=== PATIENT | female | born 1965 | race Caucasian/White ===

== ENCOUNTER 2017-01-18 18:24 | Observation (INO) | payer OTHER ==
[2017-01-18] MEDS ORDERED: NS 0.9% 1000 ML* 1,000 ML IV ONE ×2 (19:39→20:59)
[2017-01-18] MEDS ORDERED: Divalproex ER TAB(*) 500 MG PO ONE (19:41)
[2017-01-18] MEDS ORDERED: Ondansetron INJ* 2 MG/ML VIAL ONE (20:02)
[2017-01-18] MEDS ORDERED: Ondansetron INJ* 2 MG/ML VIAL IV ONE (20:23)
[2017-01-18 20:37] LABS: Hematocrit 41 % (35-47); Hemoglobin 14.3 g/dl (12.0-16.0); Mean Corpuscular HGB Conc 35 g/dl (31-36); Mean Corpuscular Hemoglobin 32 pg (27-31); Mean Corpuscular Volume 94 fL (80-97); Mean Platelet Volume 8 um3 (7.4-10.4); Red Blood Count 4.42 10^6/ul (4.0-5.4); Red Cell Distribution Width 12 % (10.5-15); White Blood Count 10.8 10^3/ul (3.5-10.8)
[2017-01-18 20:53] LABS: Calcium 8.9 mg/dL (8.6-10.3); EGFR Non-African American 103.4 (>60); Globulin 2.8 g/dL (2-4); Magnesium 2.1 mg/dL (1.9-2.7); Potassium 3.4 mmol/L (3.5-5.0); Total Bilirubin 0.8 mg/dL (0.2-1.0); Total Protein 6.8 g/dL (6.4-8.9)
[2017-01-18 20:58] LABS: Troponin I 0.08 ng/mL (<0.04)
--- NOTE | 2017-01-18 20:58 | RAD ---
HISTORY: Seizure, headache COMPARISONS: None TECHNIQUE: Multiple contiguous axial CT scans were obtained of the head without intravenous contrast. FINDINGS: HEMORRHAGE/INFARCT: There is no hemorrhage or acute infarct. MASSES/SHIFT: There is no mass or shift. EXTRA-AXIAL SPACES: There are no extra-axial fluid collections. SULCI AND VENTRICLES: The sulci and ventricles are normal in size and position for the patient's stated age. CEREBRUM: There are no focal parenchymal abnormalities. BRAINSTEM: There are no focal parenchymal abnormalities. CEREBELLUM: There are no focal parenchymal abnormalities. VESSELS: The vessels are grossly normal. PARANASAL SINUSES: The paranasal sinuses are clear. ORBITS: The orbits are unremarkable. BONES AND SOFT TISSUE: No bone or soft tissue abnormalities are noted. OTHER: None IMPRESSION: NO ACUTE INTRACRANIAL PATHOLOGY.
[2017-01-18 23:42] LABS: BUN/Creatinine Ratio 19.6 (8-20); Calcium 8.1 mg/dL (8.6-10.3); EGFR African American 163.5 (>60); EGFR Non-African American 127.1 (>60); Potassium 3.6 mmol/L (3.5-5.0)
[2017-01-19] MEDS ORDERED: Aspirin TAB* 325 MG PO ONE (00:15)
--- NOTE | 2017-01-19 00:28 | ED ---
keyanna Linder Timothy, scribed for Forrest Castellanos on 01/18/17 at 1935 . Neurological HPI - HPI Summary HPI Summary: Yaneth Garrido is a 51 yo female presenting to [facility] with witness seizure at 1827 today, lasting one minute. Pt bit her tongue. It took 20 minutes for her to return to normal. Pt has a Hx of seizures but has not had one in over a year. She currently has 5/10 REYES, which she states is typical S/P seizure. Her MHx includes seizure. Her neurologist is in [place]. - History of Current Complaint Chief Complaint: EDSeizure Stated Complaint: SEIZURE Time Seen by Provider: 01/18/17 19:29 Hx Obtained From: Patient Onset/Duration: Sudden Onset Pain Intensity: 0 - Allergy/Home Medications Allergies/Adverse Reactions: Allergies Allergy/AdvReac Type Severity Reaction Status Date / Time No Known Allergies Allergy Verified 01/18/17 19:34 PMH/Surg Hx/FS Hx/Imm Hx Neurological History: Reports: Hx Seizures - Surgical History Surgery Procedure, Year, and Place: hysterectomy Infectious Disease History: Denies: Traveled Outside the in Last 30 Days - Family History Known Family History: Positive: Cardiac Disease, Diabetes Negative: Hypertension - Social History Alcohol Use: Occasionally Hx Substance Use: No Substance Use Type: Reports: None Hx Tobacco Use: No Smoking Status (MU): Never Smoked Tobacco Review of Systems Constitutional: Negative Eyes: Negative ENT: Negative Cardiovascular: Negative Respiratory: Negative Gastrointestinal: Negative Genitourinary: Negative Musculoskeletal: Negative Skin: Negative Neurological: Other - seizure Positive: Headache Psychological: Normal All Other Systems Reviewed And Are Negative: Yes Physical Exam Triage Information Reviewed: Yes Vital Signs On Initial Exam: Initial Vitals Temp Pulse Resp BP Pulse Ox 97.2 F 84 18 120/89 98 01/18/17 18:25 01/18/17 18:25 01/18/17 18:25 01/18/17 18:25 01/18/17 18:25 Vital Signs Reviewed: Yes Appearance: Positive: Well-Appearing, No Pain Distress, Well-Nourished Skin: Positive: Warm, Skin Color Reflects Adequate Perfusion, Dry Head/Face: Positive: Normal Head/Face Inspection Eyes: Positive: EOMI, NICOLE ENT: Positive: Normal ENT inspection, Hearing grossly normal. Negative: Muffled /hoarse voice Neck: Positive: Supple, Nontender Respiratory/Lung Sounds: Positive: Clear to Auscultation, Breath Sounds Present Cardiovascular: Positive: RRR, Pulses are Symmetrical in both Upper and Lower Extremities Abdomen Description: Positive: Nontender, Soft Bowel Sounds: Positive: Present Musculoskeletal: Positive: Normal, Strength/ROM Intact Neurological: Positive: Normal, Sensory/Motor Intact, Alert, Oriented to Person Place, Time Psychiatric: Positive: Normal, Affect/Mood Appropriate Diagnostics - Vital Signs Vital Signs Temp Pulse Resp BP Pulse Ox 01/18/17 18:25 97.2 F 84 18 120/89 98 - Laboratory Result Diagrams: 01/18/17 20:30 01/18/17 23:06 Lab Statement: Any lab studies that have been ordered have been reviewed, and results considered in the medical decision making process. - CT Brain CT Interpretation: No Acute Changes - IMPRESSION: NO ACUTE INTRACRANIAL PATHOLOGY. CT Interpretation Completed By: Radiologist - EKG 2020 Cardiac Rate: NL - 74 BPM EKG Interpretation: NSR @ 74 BPM, QS depression in inferior leads. Re-Evaluation - Re-Evaluation First Eval Re-Evaluation Time: 21:05 Change: Unchanged Comment: Reviewed Pt lab and imaging studies, she is agreeable to current course of Tx. Second Eval Re-Evaluation Time: 00:11 Change: Unchanged Comment: Discussed new lab results with Pt. She is agreeable to current course of Tx. Course/Dx - Course Assessment/Plan: Yaneth Garrido is a 51 yo female presenting to [facility] S/P seizure at 1827 today lasting one minute in which she bit her tongue, with a postictal period of 20 minutes, curently c/o 5/10 REYES which she states is normal for her after seizure. Pt medication list reviewed this visit. In the ED course she recieved IV fluids, Depakote, and zofran for nausea control. Her EKG suggests NSR with QS depression in inferior leads. Her Brain CT suggests no acute intracranial pathology. After clinical examination and review of her lab and imaging studies, as well as discussion with Dr. Prado, she will be admitted to [facility] with seizure, elevated troponin, and r/o ACS. - Differential Dx Differential Diagnoses Neuro: Positive: Other - seizure - Diagnoses Provider Diagnoses: Seizure, Elevated troponin, rule out acute coronary syndrome - Physician Notifications Discussed Care Of Patient With: Jagjit Prado - Discussed Pt condition, agrees to admit Pt Time Discussed With Above Provider: 00:19 Instructed by Provider To: Admit As Inpatient Discharge - Discharge Plan Condition: Stable Disposition: ADMITTED TO [facility] Discharge Disposition Comment: admission to [facility] The documentation as recorded by the keyanna rodriguez Timothy accurately reflects the service I personally performed and the decisions made by me, Forrest Castellanos.
[2017-01-19 00:40] LABS: Troponin I 0.18 ng/mL (<0.04)
[2017-01-19 01:31] LABS: Prolactin 24.9 ng/mL (1.0-25.0)
--- NOTE | 2017-01-19 01:40 | HP ---
H&P (Free Text) History and Physical: Neurology: Dr Amos of [facility] Date/Time of Evaluation: 01/19/2017 0045 CC: seizure HPI: Mrs Garrido is a 51YO female HX epilepsy who was riding in a car en route to [place] when she experience her typical prodrome for seizure of an aura she describes as constanza vu for which she took 0.5mg lorazepam, but continued to progress developing tunnel vision, and the next thing she knew she was waking up in [facility]. She denies other symptomotology, specifically focal WNT, change in speech/swallow, chest pain, SOB, N/V, palpitations, sweats, or other issues. Per ED witnesses related her eyes rolled back and she developed generalized convulsions. Upon awakening, she felt fatigued and foggy. PMedHx epilepsy intubation for severe sepsis 2nd C diff following hysterectomy Ambulatory Orders Divalproex DR TAB(*) 500 mg PO QAM 01/19/[address] TAB(*) 750 mg PO QPM 01/19/17 Lorazepam 0.5 mg PO BID PRN 01/19/17 Allergies No Known Allergies Allergy (Verified 01/18/17 19:34) PSurgHx hysterectomy SocHx: quit smoking 1988, mild alcohol (none today), daily marijuana but no other recreational drugs; lives with her , has 3 children the youngest of which (15YO son) has been paternally estranged for 2 years which is very stressful for her, additionally she relates increased stress due to intricacies of building a home; 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; full code status FamHx: Mother: CVA, DM, HTN; Father: aortic aneurysm ROS: as above, otherwise reviewed and all were negative Constitutional: NAD, normally developed, well-nourished white female vitals: Vital Signs Temp 36.7 C 01/19/17 03:40 Pulse 55 01/19/17 03:40 Resp 13 01/19/17 04:30 BP 94/53 01/19/17 03:40 Pulse Ox 97 01/19/17 03:40 Intake & Output 01/18/17 01/18/17 01/19/17 11:59 23:59 11:59 Intake Total 1000 69 Output Total 100 Balance 1000 -31 Weight 58.967 kg 60.192 kg Intake: IV Fluids 1000 69 NS (0.9%) 69 Oral 0 Output: Urine 100 Other: # Bowel Movements 0 HEENM: atraumatic; sclera/conjunctiva: non-icteric/clear; hearing: clinically intact; oropharynx: clear, mucosa moist Neck: soft tissue: non-tender; thyroid: normal Pulmonary: clear to auscultation bilaterally, good aeration, no accessory muscle use CV: RR/RR, normal S1S2, no carotid bruit, no jugular venous distention, 2+ B DP/ PT, no edema Abdominal: soft, non-distended, non-tender, no rebound/guarding/rigidity, normoactive bowel sounds, no hepatosplenomegaly or masses, no costovertebral angle tenderness Musculoskeletal: general: grossly intact; gait: stable Integumental: normal appearance and texture of exposed skin Psychiatric orientation: AA&O to PPS affect: calm mood: cooperative eye contact: good content: reliable memory: absent for most of event responses: timely, appropriate insight: good Testing: Lab Results 01/18/17 01/18/17 01/18/17 Range/Units 20:30 20:30 20:30 WBC 10.8 (3.5-10.8) 10^3/ul RBC 4.42 (4.0-5.4) 10^6/ul Hgb 14.3 (12.0-16.0) g/dl Hct 41 (35-47) % MCV 94 (80-97) fL MCH 32 H (27-31) pg MCHC 35 (31-36) g/dl RDW 12 (10.5-15) % Plt Count 171 (150-450) 10^3/ul MPV 8 (7.4-10.4) um3 Neut % (Auto) 79.9 (38-83) % Lymph % (Auto) 10.9 L (25-47) % [place] % (Auto) 8.8 (1-9) % Eos % (Auto) 0.1 (0-6) % Baso % (Auto) 0.3 (0-2) % Absolute Neuts (auto) 8.6 H (1.5-7.7) 10^3/ul Absolute Lymphs (auto) 1.2 (1.0-4.8) 10^3/ul Absolute Monos (auto) 1.0 H (0-0.8) 10^3/ul Absolute Eos (auto) 0 (0-0.6) 10^3/ul Absolute Basos (auto) 0 (0-0.2) 10^3/ul Absolute Nucleated RBC 0 10^3/ul Nucleated RBC % 0 INR (Anticoag Therapy) 1.00 (0.89-1.11) APTT 27.9 (26.0-36.3) seconds D-Dimer, Quantitative < 200 (Less Than 230) ng/mL Sodium 127 L (133-145) mmol/L Potassium 3.4 L (3.5-5.0) mmol/L Chloride 92 L (101-111) mmol/L Carbon Dioxide 25 (22-32) mmol/L Anion Gap 10 (2-11) mmol/L BUN 11 (6-24) mg/dL Creatinine 0.61 (0.51-0.95) mg/dL Est GFR ( Amer) 133.0 (>60) Est GFR (Non-Af Amer) 103.4 (>60) BUN/Creatinine Ratio 18.0 (8-20) Glucose 114 H (70-100) mg/dL Calcium 8.9 (8.6-10.3) mg/dL Magnesium 2.1 (1.9-2.7) mg/dL Total Bilirubin 0.80 (0.2-1.0) mg/dL AST 16 (13-39) U/L ALT 8 (7-52) U/L Alkaline Phosphatase 34 (34-104) U/L Total Creatine Kinase 85 (10-223) U/L CK-MB (CK-2) 1.8 (0.6-6.3) ng/mL Troponin I 0.08 H* (<0.04) ng/mL Total Protein 6.8 (6.4-8.9) g/dL Albumin 4.0 (3.2-5.2) g/dL Globulin 2.8 (2-4) g/dL Albumin/Globulin Ratio 1.4 (1-3) Prolactin 24.9 (1.0-25.0) ng/mL Urine Color Urine Appearance Urine pH (5-9) Ur Specific [place] (1.010-1.030) Urine Protein (Negative) Urine Ketones (Negative) Urine Blood (Negative) Urine Nitrate (Negative) Urine Bilirubin (Negative) Urine Urobilinogen (Negative) Ur Leukocyte Esterase (Negative) Urine Glucose (Negative) Valproic Acid 71.0 (50-100) mcg/mL 01/18/17 01/19/17 01/19/17 Range/Units 23:06 03:15 03:21 WBC (3.5-10.8) 10^3/ul RBC (4.0-5.4) 10^6/ul Hgb (12.0-16.0) g/dl Hct (35-47) % MCV (80-97) fL MCH (27-31) pg MCHC (31-36) g/dl RDW (10.5-15) % Plt Count (150-450) 10^3/ul MPV (7.4-10.4) um3 Neut % (Auto) (38-83) % Lymph % (Auto) (25-47) % [place] % (Auto) (1-9) % Eos % (Auto) (0-6) % Baso % (Auto) (0-2) % Absolute Neuts (auto) (1.5-7.7) 10^3/ul Absolute Lymphs (auto) (1.0-4.8) 10^3/ul Absolute Monos (auto) (0-0.8) 10^3/ul Absolute Eos (auto) (0-0.6) 10^3/ul Absolute Basos (auto) (0-0.2) 10^3/ul Absolute Nucleated RBC 10^3/ul Nucleated RBC % INR (Anticoag Therapy) (0.89-1.11) APTT (26.0-36.3) seconds D-Dimer, Quantitative (Less Than 230) ng/mL Sodium 129 L (133-145) mmol/L Potassium 3.6 (3.5-5.0) mmol/L Chloride 98 L (101-111) mmol/L Carbon Dioxide 23 (22-32) mmol/L Anion Gap 8 (2-11) mmol/L BUN 10 (6-24) mg/dL Creatinine 0.51 (0.51-0.95) mg/dL Est GFR ( Amer) 163.5 (>60) Est GFR (Non-Af Amer) 127.1 (>60) BUN/Creatinine Ratio 19.6 (8-20) Glucose 108 H (70-100) mg/dL Calcium 8.1 L (8.6-10.3) mg/dL Magnesium (1.9-2.7) mg/dL Total Bilirubin (0.2-1.0) mg/dL AST (13-39) U/L ALT (7-52) U/L Alkaline Phosphatase (34-104) U/L Total Creatine Kinase 76 (10-223) U/L CK-MB (CK-2) 2.3 (0.6-6.3) ng/mL Troponin I 0.18 H* 0.29 H* (<0.04) ng/mL Total Protein (6.4-8.9) g/dL Albumin (3.2-5.2) g/dL Globulin (2-4) g/dL Albumin/Globulin Ratio (1-3) Prolactin (1.0-25.0) ng/mL Urine Color Yellow Urine Appearance Clear Urine pH 6.0 (5-9) Ur Specific [place] 1.008 L (1.010-1.030) Urine Protein Negative (Negative) Urine Ketones 1+ H (Negative) Urine Blood Negative (Negative) Urine Nitrate Negative (Negative) Urine Bilirubin Negative (Negative) Urine Urobilinogen Negative (Negative) Ur Leukocyte Esterase Negative (Negative) Urine Glucose Negative (Negative) Valproic Acid (50-100) mcg/mL 01/19/17 Range/Units 05:50 WBC (3.5-10.8) 10^3/ul RBC (4.0-5.4) 10^6/ul Hgb (12.0-16.0) g/dl Hct (35-47) % MCV (80-97) fL MCH (27-31) pg MCHC (31-36) g/dl RDW (10.5-15) % Plt Count (150-450) 10^3/ul MPV (7.4-10.4) um3 Neut % (Auto) (38-83) % Lymph % (Auto) (25-47) % [place] % (Auto) (1-9) % Eos % (Auto) (0-6) % Baso % (Auto) (0-2) % Absolute Neuts (auto) (1.5-7.7) 10^3/ul Absolute Lymphs (auto) (1.0-4.8) 10^3/ul Absolute Monos (auto) (0-0.8) 10^3/ul Absolute Eos (auto) (0-0.6) 10^3/ul Absolute Basos (auto) (0-0.2) 10^3/ul Absolute Nucleated RBC 10^3/ul Nucleated RBC % INR (Anticoag Therapy) (0.89-1.11) APTT (26.0-36.3) seconds D-Dimer, Quantitative (Less Than 230) ng/mL Sodium 129 L (133-145) mmol/L Potassium 4.0 (3.5-5.0) mmol/L Chloride 97 L (101-111) mmol/L Carbon Dioxide 26 (22-32) mmol/L Anion Gap 6 (2-11) mmol/L BUN 9 (6-24) mg/dL Creatinine 0.54 (0.51-0.95) mg/dL Est GFR ( Amer) 153.1 (>60) Est GFR (Non-Af Amer) 119.0 (>60) BUN/Creatinine Ratio 16.7 (8-20) Glucose 96 (70-100) mg/dL Calcium 8.2 L (8.6-10.3) mg/dL Magnesium (1.9-2.7) mg/dL Total Bilirubin (0.2-1.0) mg/dL AST (13-39) U/L ALT (7-52) U/L Alkaline Phosphatase (34-104) U/L Total Creatine Kinase (10-223) U/L CK-MB (CK-2) (0.6-6.3) ng/mL Troponin I 0.24 H* (<0.04) ng/mL Total Protein (6.4-8.9) g/dL Albumin (3.2-5.2) g/dL Globulin (2-4) g/dL Albumin/Globulin Ratio (1-3) Prolactin (1.0-25.0) ng/mL Urine Color Urine Appearance Urine pH (5-9) Ur Specific [place] (1.010-1.030) Urine Protein (Negative) Urine Ketones (Negative) Urine Blood (Negative) Urine Nitrate (Negative) Urine Bilirubin (Negative) Urine Urobilinogen (Negative) Ur Leukocyte Esterase (Negative) Urine Glucose (Negative) Valproic Acid (50-100) mcg/mL ECG, personally reviewed: NSR rate 70, diffuse ST-T flattening with T-wave inversion in V4/5 CXR, personally reviewed: IMPRESSION: NO ACUTE INTRACRANIAL PATHOLOGY. Impression: 51F HX epilepsy presents after a typical seizure with finding of elevating troponin without cardiac symptomotology DIAGNOSIS & PLAN Primary elevated troponin : concerning for demand ischemia during seizure : active individual without exercise induced angina : telemetry, trend : aspirin : exercise stress test in AM : consider cardiology consult pending above results, if indicated : supplemental oxygen : supportive care Secondary epilepsy with breakthrough seizure : continue divalproex, level therapeutic : seizure precautions Admission Rational: CDU observation for elevated troponin DVTp: DARIEN Code Status: full HCP:
[2017-01-19] MEDS ORDERED: Albuterol 2.5 MG/3 ML NEB.SOL* (0.083%) INH PRN (01:43)
[2017-01-19] MEDS ORDERED: CMCS: Melatonin (NF) 3 MG TAB PO PRN (01:43)
[2017-01-19] MEDS ORDERED: Acetaminophen TAB* 325 MG PO PRN (01:43)
[2017-01-19] MEDS ORDERED: Ondansetron INJ* 2 MG/ML VIAL IV PRN (01:43)
[2017-01-19] MEDS ORDERED: LORazepam TAB(*) 0.5 MG PO PRN (01:44)
[2017-01-19] MEDS ORDERED: NS 0.9% 1000 ML* 1,000 ML IV SCH ×2 (01:45→07:08)
[2017-01-19 03:44] LABS: Urine Bilirubin Negative (Negative); Urine Glucose Negative (Negative); Urine Nitrite Negative (Negative)
[2017-01-19] MEDS ORDERED: Omeprazole CAP* 20 MG PO SCH (06:00)
[2017-01-19 06:21] LABS: BUN/Creatinine Ratio 16.7 (8-20); Calcium 8.2 mg/dL (8.6-10.3); EGFR African American 153.1 (>60)
[2017-01-19 06:25] LABS: Troponin I 0.24 ng/mL (<0.04)
[2017-01-19] MEDS ORDERED: Aspirin EC Low Dose* 81 MG TAB.EC PO SCH (09:00)
[2017-01-19] MEDS ORDERED: Divalproex DR TAB(*) 500 MG PO SCH (09:00)
[2017-01-19 11:32] VITALS: BP 96/58
[2017-01-19] MEDS ORDERED: ALPRAZolam TAB* 0.25 MG PO PRN (12:42)
[2017-01-19] MEDS ORDERED: Nicotine Lozenge* 4 MG LOZENGE MT PRN (12:42)
[2017-01-19] MEDS ORDERED: Divalproex DR TAB(*) 250 MG PO SCH (18:00)
--- NOTE | 2017-01-20 13:16 | DS ---
CC: Dr. Charlie Kwok * DISCHARGE SUMMARY: DATE OF ADMISSION: 01/19/17 DATE OF DISCHARGE: 01/19/17 PRIMARY CARE PROVIDER: None. NEUROLOGIST: Dr. Charlie Kwok from [facility], Fax #. DISCHARGE DIAGNOSES: 1. Generalized tonic-clonic seizure in a patient with history of seizure disorder. 2. Elevated troponin due to above. SECONDARY DIAGNOSES: 1. Hyponatremia, suspected mild dehydration. 2. History of seizure disorder. MEDICATIONS ON DISCHARGE: Unchanged from admission and include: 1. Depakote DR 500 mg q.a.m., 750 mg q.p.m. 2. Lorazepam 0.5 mg b.i.d. p.r.n. LABORATORY DATA AND STUDIES PERFORMED DURING THE HOSPITAL STAY: Includes: The patient's troponin peaked at 0.29. On 01/19/17, sodium of 129, potassium of 4.0 , chloride 97, carbon dioxide 26, BUN 9, creatinine 0.54. Serum valproic acid obtained on 01/18/[address] obtained on admission. Impression: "No acute intracranial pathology. " The patient's treadmill cardiac stress test obtained on 01/19/17. Impression: "Normal submaximal cardiac stress test." HOSPITALIZATION COURSE: Yaneth Garrido is a 51-year-old female with a history of seizure disorder who presented to the hospital after generalized tonic-clonic seizure. The patient stated that last time she had generalized tonic-clonic seizure was approximately a year ago. She has a history of partial seizures that happened frequently. Due to that she has not driven for the past several years. She is also on leave from work due to that. While the patient was observed in the emergency department, she was noted to have a troponin of 0.2. Due to that, medicine service was asked to see the patient for observation. The patient was observed in patient monitor bed with no evidence of arrhythmias noted. Subsequently, she had a treadmill cardiac stress test performed under the supervision of Dr. Luu which was submaximal due to some technical difficulties, but otherwise normal. The patient never developed chest pain or shortness of breath and her troponin was most likely elevated due to the stress and demand ischemia related to seizure. The patient had hyponatremia and hypokalemia with a sodium of 127 and potassium of 3.4. At admission, it was replaced with oral potassium. The patient also received intravenous hydration and her sodium renee to 129 by the time of discharge. The patient is recommended to have a basic metabolic panel level drawn in approximately a week for followup. The patient also is recommended to drink instead of water drinks with electrolytes in them. At discharge, the patient is recommended to follow up with her primary neurologist within the next couple of weeks. PHYSICAL EXAMINATION: At the time of discharge, blood pressure 96/58, heart rate of 59 and regular, respiratory rate 18, oxygen saturation 98% on room air, and temperature 98.7. General Appearance: This is a very pleasant 51-year-old female who is in no acute distress. Alert, awake, and oriented x3. HEENT: Head atraumatic and normocephalic. Eyes: Pupils are equal, round, and reactive to light and accommodation. Oropharynx clear. Mucosa moist. Neck: Supple. No JVD, no bruit bilaterally. Cardiovascular: Regular, rate, and rhythm. No murmur. Respiratory: Clear to auscultation bilaterally. Abdomen: Soft and nontender. Bowel sounds present in all 4 quadrants. Extremities: There is no edema, pulses +2 bilaterally, no clubbing or cyanosis. Please note this is a short summary of the patient's hospitalization. Please refer to further medical records for details. [id number] #: [id number] MTDD
== END 2017-01-19 14:00 | disposition home or self-care (01) ==
LOC: ED 18:24 → MEDTELE 01-19 00:47
PROVIDERS: ADMIT Hospitalist; ATTEND Internal Medicine
DX: G40.89 Other seizures (principal); R74.8 Abnormal levels of other serum enzymes; E87.1 Hypo-osmolality and hyponatremia; G40.409 Other generalized epilepsy and epileptic syndromes, not intractable, without status epilepticus; E87.6 Hypokalemia
CPT/HCPCS: 36415; 70450; 80048; 80053; 80164; 81003; 82550; 82553; 83735; 84146; 84484; 85025; 85379; 85610; 85730; 93005; 93017; 96361; 96374; 99284; A9270-GY; G0378; J2405